=== PATIENT | male | born 1995 | race Two or more races ===

== ENCOUNTER 2024-03-19 18:23 | Emergency (ER) | payer SELFPAY ==
[~2024-03-19] VITALS: Ht 170.2 cm; Wt 63.9 kg
[2024-03-19 18:41] VITALS: BP 149/98; PULSE 131; RESP 21; O2SAT 100
== END 2024-03-19 18:45 | disposition left against medical advice (07) ==
LOC: ER 18:34
DX: R00.0 Tachycardia, unspecified (principal); F15.90 Other stimulant use, unspecified, uncomplicated; Z59.00 Homelessness unspecified; Z53.29 Procedure and treatment not carried out because of patient's decision for other reasons; Z87.891 Personal history of nicotine dependence